=== PATIENT | male | born 1970 | race African-American/Black ===

== ENCOUNTER 2024-08-01 15:50 | Emergency (ER) | payer SELFPAY ==
[~2024-08-01] VITALS: Ht 180.3 cm; Wt 80.0 kg
[2024-08-01 15:56] VITALS: BP 142/112; PULSE 91; TEMP 98.6; O2SAT 97
[2024-08-01] MEDS: ACETAMINOPHEN 500MG TABLET PO ONE (18:15)
[2024-08-01] MEDS: IBUPROFEN 600MG TABLET PO ONE (18:15)
[2024-08-01] MEDS ORDERED: METH-653 MT (18:24)
[2024-08-01] MEDS ORDERED: IBUP-2029 MT (18:24)
[2024-08-01 18:30] VITALS: RESP 17
== END 2024-08-01 18:37 | disposition home or self-care (01) ==
LOC: ER 16:16
DX: M79.10 Myalgia, unspecified site (principal); M54.2 Cervicalgia; M54.50 Low back pain, unspecified; I10 Essential (primary) hypertension; V49.59XA Passenger injured in collision with other motor vehicles in traffic accident, initial encounter; Y93.89 Activity, other specified; Y92.89 Other specified places as the place of occurrence of the external cause; Y99.8 Other external cause status
CPT/HCPCS: 99283